=== PATIENT | male | born 1965 | race Caucasian/White ===

== ENCOUNTER 2024-03-23 13:22 | Emergency (ER) | payer SELFPAY ==
[2024-03-23] VITALS (10 sets, daily range): BP systolic 111–148; BP diastolic 66–86
[~2024-03-23] VITALS: Ht 188 cm; Wt 81.6 kg
[~2024-03-23 13:22] MED LIST: COZAAR100 MG PO; LIPITOR20 M1 PO
[2024-03-23 14:06] LABS: BASO% 0.5 % (0-3); EOS% 0.3 % (0-8); HEMATOCRIT 45.6 % (39.0-50.0); HEMOGLOBIN 14.6 g/dl (14.0-18.0); IMMATURE GRANULOCYTES 0.3 % (0.0-5.0); LYMPH% 17.4 % (15-41); MEAN CELL VOLUME 92.1 fL CALC (80.0-100.0); MEAN CORPUSCULAR HGB 29.5 pG CALC (26.0-32.0); MONO% 8.7 % (2-13); NEUT# 8.83 thou/uL (1.82-7.42); NEUT% 72.8 % (42-76); RED BLOOD COUNT 4.95 mill/uL (4.70-6.10); RED CELL DISTRI WIDTH 14.3 % (11.5-15.5)
[2024-03-23 14:09] LABS: MAGNESIUM 1.8 mg/dL (1.6-2.3)
[2024-03-23 14:10] LABS: ALBUMIN 4.5 g/dL (3.2-5.0); BILIRUBIN, TOTAL 0.7 mg/dL (0.2-1.3); CREATININE 0.9 mg/dL (0.7-1.3); POTASSIUM 3.4 mmol/l (3.5-5.1); TOTAL PROTEIN 7.5 g/dL (6.3-8.2)
[2024-03-23 14:40] LABS: TSH, 3RD GENERATION 1.65 uIU/mL (0.47 - 4.68)
[2024-03-23] MEDS ORDERED: SODIUM CHLORIDE 0.9% 500 ML IV ONE (15:05)
[2024-03-23] MEDS ORDERED: amioDARONE HCl 450 MG in SODIUM CHLORIDE 250 ML IV ONE (15:05)
[2024-03-23] MEDS ORDERED: SODIUM CHLORIDE 0.9% 1,000 ML IV ONE (15:40)
== END 2024-03-23 17:00 | disposition short-term general hospital (02) | DRG 310 ==
LOC: ED 13:22
PROVIDERS: Family Medicine
PROC: 05HM33Z Insertion of Infusion Device into Right Internal Jugular Vein, Percutaneous Approach (ICD-10-PCS; principal; 2024-03-23)
DX: I47.20 Ventricular tachycardia, unspecified (principal); I45.6 Pre-excitation syndrome; I10 Essential (primary) hypertension; Z95.1 Presence of aortocoronary bypass graft; Z95.810 Presence of automatic (implantable) cardiac defibrillator; Z72.0 Tobacco use
CPT/HCPCS: J0282